=== PATIENT | male | born 1985 | race Caucasian/White ===

== ENCOUNTER 2021-12-16 16:06 | Emergency (ER) | payer OTHER ==
[2021-12-16] MEDS ORDERED: Sodium Chloride 0.9% 10 ML Syringe FLUSH PRN (16:17)
[2021-12-16] MEDS ORDERED: LORazepam 2 MG/ML SDV IVPUSH STA (16:19)
[2021-12-16] MEDS ORDERED: Sodium Chloride 0.9% 1,000 ML IV SCH (16:30)
[2021-12-16] MEDS ORDERED: Iopamidol 755 Mg/ML 100 ML Bottle IV ONE (16:38)
[2021-12-16 16:40] LABS: ESTIMATED GFR 89 mL/min (>60)
== END 2021-12-16 20:28 ==
LOC: EDBD 16:06 → FB.ED 16:06
DX: S39.012A Strain of muscle, fascia and tendon of lower back, initial encounter (principal); S40.021A Contusion of right upper arm, initial encounter; V49.9XXA Car occupant (driver) (passenger) injured in unspecified traffic accident, initial encounter; Y92.410 Unspecified street and highway as the place of occurrence of the external cause
CPT/HCPCS: 70450; 71260; 72125; 72131; 73030-RT; 73080-RT; 74177; 80053; 80307; 85025; 85610; 85730; 96361; 96374; 99285-25; J2060; J3490; J7030; Q9967